=== PATIENT | female | born 2000 | race Caucasian/White ===

== ENCOUNTER 2019-04-21 16:43 | Emergency (ER) | payer OTHER, SELFPAY ==
[2019-04-21 16:52] VITALS: BP 125/62; PULSE 86; RESP 18; TEMP 36.6; O2SAT 100
--- NOTE | 2019-04-21 17:08 | ED.GENADULT ---
HPI - General Adult General Chief complaint: Upper Respiratory Infection Stated complaint: Sore Throat Time Seen by Provider: 04/21/19 17:08 Source: patient and RN notes reviewed Mode of arrival: ambulatory Limitations: no limitations History of Present Illness HPI narrative: This is a 18 years old female presented office for evaluation of sore throat for 3-day. Associated with right ear pain and runny nose. She also reported a little cough.She admits to smoking about 2 cigarettes a day however she has not been smoking since she has been having sore throat.She is 36-week Related Data Home Medications Medication Instructions Recorded Confirmed PNV cmb#95-ferrous fumarate-FA 1 tablet PO DAILY 04/21/19 04/21/19 [] Allergies Allergy/AdvReac Type Severity Reaction Status Date / Time No Known Allergies Allergy Verified 09/25/18 18:18 Review of Systems Review of Systems: Narrative: CONSTITUTIONAL: Denies fever ENT: Reports sore throat, right ear pain and a little stuffy nose. CARDIOVASCULAR: Denies chest pain RESPIRATORY: Denies dyspnea, wheezing. Reports cough GASTROINTESTINAL: Denies abdominal pain, nausea, vomiting, diarrhea. GENITOURINARY: Denies urinary symptoms or discharge SKIN: Denies rash MUSCULOSKELETAL: Denies acute back pain, joint pain, or myalgia. NEUROLOGIC: Denies numbness, or focal weakness. [facility] Social History Social History (Updated 04/21/19 @ 17:15 by LIO Serrano) Smoking packs per day: 2 Smoking cigarettes per day: 40.0 Smoking status: Current every day smoker Comments At time of signature, I agree with nursing past medical, surgical, social and family history. There is no relevant family history pertinent to the presenting complaint. Exam Narrative: Exam Narrative: GENERAL: This is a well-nourished, well-developed patient, in no apparent distress. EYES: Sclera clear/white. Vision is grossly intact. EARS: External ears normal, auditory canals clear and without drainage, right TM noted suppurative and bulging. Left TM noted fluid level. Hearing grossly intact. NOSE: External nose normal with no obvious nasal discharge, nares without redness, no rhinorrhea. THROAT: Mucous membranes moist, posterior pharynx slight erythema with drainage NECK: Neck supple, tender with lymphadenopathy CARDIOVASCULAR: Regular rate and rhythm without murmurs, gallops, or rubs. RESPIRATORY: Clear to auscultation. Breath sounds equal bilaterally. No wheezes, rales, or rhonchi. GASTROINTESTINAL: Abdomen soft, non-tender, nondistended. Bowel sounds are active. No hepato-splenomegaly, or palpable masses. No guarding. SKIN: warm, intact with no suspicious lesions or rash, good texture and turgor. NEURO: awake, alert, and oriented to person, place and time. There were no obvious focal neurologic abnormalities. Steady gait [place] Coma Scale Eye Opening: Spontaneous 4 [place] Coma Scale Motor: Obeys Commands 6 Ines Coma Scale Verbal: Oriented 5 Course Vital Signs Vital signs: Vital Signs Temperature 97.8 F 04/21/19 16:52 Pulse Rate 86 04/21/19 16:52 Respiratory Rate 18 04/21/19 16:52 Blood Pressure 125/62 04/21/19 16:52 Pulse Oximetry 100 04/21/19 16:52 Temperature 97.8 F 04/21/19 16:52 Pulse Rate 86 04/21/19 16:52 Respiratory Rate 18 04/21/19 16:52 Blood Pressure 125/62 04/21/19 16:52 Pulse Oximetry 100 04/21/19 16:52 Medical Decision Making MDM Narrative Medical decision making narrative: Discharge instructions reviewed with patient, as well as provided in writing per nursing staff. The instructions also include specific and strict return/GO TO THE ER as well as f/u information. All questions have been answered, and the patient deny any further questions with discharge and discharge plan. Differential Diagnosis Differential Diagnosis: pneumonia, Allergic Rhinitis, Upper respiratory cough syndrome, Pharyngitis, Sinusitis, Bronch
== END 2019-04-21 17:19 | disposition home or self-care (01) ==
PROVIDERS: Emergency Provider Nurse Practitioner
DX: O99.513 Diseases of the respiratory system complicating pregnancy, third trimester (principal); J02.9 Acute pharyngitis, unspecified; O99.333 Smoking (tobacco) complicating pregnancy, third trimester; Z3A.36 36 weeks gestation of pregnancy
CPT/HCPCS: 87081; 87880; 99213; G0463

== ENCOUNTER 2020-12-30 18:14 | Emergency (ER) | payer OTHER, SELFPAY ==
--- NOTE | ~2020-12-30 | CT_ITS ---
EXAMINATION: CT abdomen pelvis w con DATE: 12/30/2020 22:00 INDICATION: Low abdominal pain. TECHNIQUE: Computed tomography (CT) of the abdomen and pelvis was performed with 100 mL Omnipaque 350 intravenous contrast. Automated exposure control and iterative reconstruction technique were employe d. The dose-length product was 284.55 mGy-cm. COMPARISON: CT abdomen and pelvis 01/08/17 FINDINGS: The visualized portions of the lung bases are clear without pneumonia or pleural effusion. The heart size is normal. No pericardial effusion. The liver, gallbladder, spleen, pancreas, adrenal glands, and left kidney are normal. There is a 5 mm cyst in right kidney. There are no dilated loops of bowel. There are no dilated loops of bowel. The appendix is normal. There are no pathologically en larged lymph nodes. There is no free intraperitoneal fluid. There is mild lumbar spondylosis. IMPRESSION: 1. No etiology for the patient's symptoms. Reviewed, dictated and finalized at location [facility].
[2020-12-30 19:02] VITALS: BP 112/56; PULSE 86; RESP 18; TEMP 36.7; O2SAT 100
[2020-12-30 19:02] LABS: Basophils Percent Auto 0.4 % (0.2-1.2); Eosinophils Absolute Auto 0.1 K/mm3 (0-0.3); Eosinophils Percent Auto 0.7 % (0-4.4); Hematocrit 39.5 % (37.0-47.0); Hemoglobin 13.3 g/dL (12.0-15.0); Immature Granulocyte Absolute 0.02 K/mm3 (0.00-0.031); Immature Granulocyte Percent A 0.2 % (0-0.5); Lymphocytes Absolute Auto 2.12 K/mm3 (0.9-3.2); Lymphocytes Percent Auto 23.2 % (18.3-44.2); Mean Corpuscular HGB Conc 33.7 g/dl (32-36); Mean Corpuscular Hemoglobin 28.8 pg (26-34); Mean Corpuscular Volume 85.5 fl (80-100); Mean Platelet Volume 9.3 fl (7.4-10.4); Monocytes Absolute Auto 0.7 K/mm3 (0.1-0.6); Monocytes Percent Auto 7.1 % (2.6-8.5); Neutrophils Absolute Auto 6.3 K/mm3 (1.3-6.7); Neutrophils Percent Auto 68.4 % (45.5-73.1); Platelet Count Result 286 k/mm3 (150-375); Red Blood Count 4.62 M/mm3 (4.2-5.4); Red Cell Distribution Width 12.2 % (11.5-14.5); White Blood Count 9.2 K/mm3 (4.5-10.0)
[2020-12-30 19:11] LABS: Alanine Aminotransferase 26 U/L (4-35); Albumin Level 4.8 g/dL (3.5-5.1); Alkaline Phosphatase 83 U/L (38-126); Anion Gap 7 mmol/L (8-16); Aspartate Amino Transferase 25 U/L (14-36); Bilirubin,Total 0.3 mg/dL (0.2-1.3); Blood Urea Nitrogen 6 mg/dL (7-17); Calcium 9.6 mg/dL (8.4-10.2); Carbon Dioxide 27 mmol/L (22-30); Chloride 105 mmol/L (98-107); Estimated CRCL calculation 97 ml/min; Estimated Glomerular Filt Rate > 60; Glucose 97 mg/dL (65-110); Lipase 56 U/L (23-300); Potassium 4.1 mmol/L (3.4-5.0); Sodium 139 mmol/L (137-145)
[2020-12-30 19:12] LABS: Add Urine Microscopic? YES; Appearance Urine Clear (Clear); Bacteria Urine Trace /hpf; Bilirubin Urine Negative (Negative); Blood Urine 1+ (Negative); Color Urine Yellow (Yellow); Glucose Urine UA Negative (Negative); Ketones Urine Negative (Negative); Leukocyte Esterase Ur 1+ LEU/UL (Negative); Nitrate Urine Negative (Negative); Protein Urine Negative (Negative); RBC Urine 0-2 /hpf (0-2); Specific Grav Ur 1.011 (1.001-1.035); Squamous Epithelial Cell Urine Many /hpf (Few); Urobilinogen Urine Negative mg/dL (<2.0)
--- NOTE | 2020-12-30 21:08 | ED.ABDPAIN ---
HPI - Abdominal Pain General Chief Complaint: Abdominal Pain Stated Complaint: abd pain x 2 days Time Seen by Provider: 12/30/20 20:29 Source: RN notes reviewed History of Present Illness HPI narrative: Patient presents emergency department from home for abdominal pain. Patient states pain began yesterday pain is located in the bilateral lower abdomen described as cramping in nature associate with nausea and diarrhea states she has not had any vomiting patient states she did take ibuprofen yesterday but not taking medication today she denies any fevers or chills chest pain shortness of breath or any other symptoms of concern patient also notes she is had a small amount of brownish vaginal discharge Related Data Home Medications Medication Instructions Recorded Confirmed PNV cmb#95-ferrous fumarate-FA 1 tablet PO DAILY 04/21/19 04/21/19 [] Allergies Allergy/AdvReac Type Severity Reaction Status Date / Time No Known Allergies Allergy Verified 12/30/20 21:26 Review of Systems Review of Systems: Gen.: Denies fevers or chills ENT: Denies congestion Respiratory: Denies shortness of breath or cough CV: Denies chest pain or palpitations GI: See HPI denies burning, urgency, frequency or hematuria Musculoskeletal: Denies back pain or muscle pain Neuro: Denies numbness, tingling, weakness or focal weakness Skin: Denies rash Except as documented, all other systems reviewed and negative [facility] Social History Social History Smoking packs per day: 2 Smoking cigarettes per day: 40.0 Smoking status: Current every day smoker Exam Narrative: APPEARANCE: No acute distress, nontoxic, resting in bed HEENT: Normocephalic, atraumatic, OMM RESPIRATORY: No respiratory distress, clear to auscultation bilaterally with no rhonchi wheezing or rales CARDIOVASCULAR: RRR s murmur ABDOMINAL: Soft nondistended tender palpation right lower quadrant left lower quadrant no tenderness right upper quadrant left upper quadrant no rebound or guarding exam: Normal external exam, moderate amount of dark maroon blood clots in vaginal canal cervix is closed, no adnexal tenderness no cervical motion tenderness MUSCULOSKELETAl: Moves all extremities. No clubbing, cyanosis or edema. NEURO: Awake and alert. Following commands, speech normal, no focal deficits SKIN:: Warm, dry. Normal Color PSYCHIATRIC: Normal affect/mood Course Course Emergency Course: Just before getting ready to perform pelvic exam the patient states she fell like she has started her menstrual cycle patient gone to the bathroom and came back in states she did indeed start her menstrual cycle states she has not had a menstrual cycle in 8 months suspect this could be a component of her abdominal pain Patient states that they are feeling much better at this time. States abdominal pain has improved.. Repeat abdominal exam shows the patient's abdomen to be soft with no surgical abdomen present. Discussed with patient results of workup and diagnosis. Discussed need for follow-up with primary care physician, reasons to return to the emergency department in proper use of medication. Patient understands and agrees to current treatment plan Vital Signs Vital signs: Vital Signs Temperature 98.0 F 12/30/20 19:02 Pulse Rate 86 12/30/20 19:02 Respiratory Rate 18 12/30/20 19:02 Blood Pressure 112/56 L 12/30/20 19:02 Pulse Oximetry 100 12/30/20 19:02 Temperature 98.0 F 12/30/20 19:02 Pulse Rate 77 12/30/20 21:17 Respiratory Rate 16 12/30/20 21:17 Blood Pressure 118/65 12/30/20 21:17 Pulse Oximetry 99 12/30/20 21:17 MDM - Abdominal Pain Lab Data Result diagrams: 12/30/20 18:56 12/30/20 18:56 Labs: Lab Results 12/30/20 12/30/20 12/30/20 Range/Units 18:56 18:56 19:01 WBC 9.2 (4.5-10.0) K/mm3 RBC 4.62 (4.2-5.4) M/mm3 Hgb 13.3 (12.0-15.0) g/dL
[2020-12-30 21:17] VITALS: BP 118/65; PULSE 77; RESP 16; O2SAT 99
[2020-12-30] MEDS: SODIUM CHLORIDE 0.9% IV 1,000 ML 999 ML IV CONT (21:27)
[2020-12-30] MEDS: KETOROLAC 30 MG/ML VIAL (*BKC) IV PUSH (21:27)
[2020-12-31] MEDS: NITROFURANTOIN MONOHYD MACROCR 100 MG CAP PO (00:16)
[2020-12-31 00:27] VITALS: BP 128/86; PULSE 79; RESP 14; O2SAT 98
== END 2020-12-31 00:29 | disposition home or self-care (01) ==
PROVIDERS: Emergency Provider Emergency Medicine
DX: R10.30 Lower abdominal pain, unspecified (principal); N93.8 Other specified abnormal uterine and vaginal bleeding; N39.0 Urinary tract infection, site not specified; F17.210 Nicotine dependence, cigarettes, uncomplicated
CPT/HCPCS: 36415; 74177; 80053; 81001; 81025; 83690; 85025; 96361; 96374; 99284; A9270; J1885; J7030; Q9967

== ENCOUNTER 2021-12-08 09:30 | Emergency (ER) | payer OTHER, SELFPAY ==
--- NOTE | ~2021-12-08 | CT_ITS ---
EXAMINATION: CT abdomen pelvis w con DATE: 12/08/2021 12:55 INDICATION: Lower abdominal pain, nausea and vomiting. Near syncopal episode. Shakiness. Urinary trac t infection. TECHNIQUE: Computed tomography (CT) of the abdomen and pelvis was performed with 100 CC Omnipaque 350 intravenous contrast. Automated exposure control and iterative reconstruction technique were employe d. Exam dose: 355.45 mGy-cm total exam DLP. COMPARISON: 12/30/2020 CT abdomen pelvis FINDINGS: The lung bases are clear. Normal heart size. No pericardial or pleural effusion. The liver, gallbladder, bile ducts, spleen, pancreas and pancreatic duct as well as adrenal glands ap pear normal. No suspicious renal mass lesion is noted. There may be a couple of pinpoint nonobstructing renal calculi on either side; urinary tract calculi would be better accurately demonstrated on noncontrast examination. No ureteral calculus or hydrouret eronephrosis. Normal caliber of the abdominal aorta. No intraperitoneal or retroperitoneal or pelvic mass lesion or adenopathy or ascites. The urinary bladder, uterus and adnexal areas are unremarkable. Normal appendix. No bowel obstruction, bowel wall thickening, pneumatosis or intraperitoneal free air is detected. Small fat-containing umbilical hernia. Included skeletal structures are unremarkable. IMPRESSION: Cannot exclude one or more small renal calculi on either side; alternatively, this may b e early contrast material excretion by the kidneys. Noncontrast CT examination would be more accurate for detection of urinary tract calculi Normal appendix Reviewed, dictated and finalized at [facility]. Reviewed, dictated and finalized at location [facility]. IMPRESSION: Cannot exclude one or more small renal calculi on either side; alt ernatively, this may be early contrast material excretion by the kidneys. Nonco ntrast CT examination would be more accurate for detection of urinary tract amie culi Normal appendix
[2021-12-08 09:36] VITALS: BP 111/73; PULSE 83; RESP 18; TEMP 36.7; O2SAT 99
[2021-12-08 11:08] VITALS: BP 111/68; PULSE 69
[2021-12-08 11:09] VITALS: BP 105/72; PULSE 68
[2021-12-08 11:10] VITALS: BP 114/75; PULSE 84
--- NOTE | 2021-12-08 11:22 | ED.ABDPAIN ---
HPI - Abdominal Pain General Chief Complaint: Abdominal Pain Stated Complaint: abd pain Time Seen by Provider: 12/08/21 10:40 Source: patient Mode of arrival: ambulatory Limitations: no limitations History of Present Illness HPI narrative: Patient is a 21 y/o female who presents to the ED with c/o abdominal pain and nausea. Patient reports having a nauseous feeling and pain in her lower abdomen for the past couple days. She has not tried anything for her pain at home. She just describes it as a queasy feeling. She denies any vomiting. This morning, she reports she became hot while straightening her hair and felt slightly lightheaded. She then decided to come to the ED. Lightheadedness currently resolved. Patient denies any fever, diarrhea, constipation, urinary symptoms, headache, dizziness, vision changes, CP, SOB, cough, cold symptoms, myalgias. Related Data Home Medications Medication Instructions Recorded Confirmed vit no.95-ferrous 1 tablet PO DAILY 04/21/19 04/21/19 fumarate 28 mg-folic acid 800 mcg tablet () Allergies Allergy/AdvReac Type Severity Reaction Status Date / Time No Known Allergies Allergy Verified 12/08/21 10:34 Review of Systems Review of Systems: CONSTITUTIONAL: Reports sweats. Denies fever, chills. EYES: Denies visual changes. ENT: Denies rhinorrhea, congestion, sore throat. CARDIOVASCULAR: Denies chest pain. RESPIRATORY: Denies cough or dyspnea. GASTROINTESTINAL: Reports lower ABD pain, nausea. Denies constipation, vomiting, or diarrhea. GENITOURINARY: Denies dysuria or hematuria. NEUROLOGIC: Reports lightheadedness. Denies headache, numbness, or weakness. All systems reviewed & are unremarkable except as noted in HPI and below PMFSH Past Medical History Medical History No pertinent past medical history Surgical History Surgical History No pertinent past surgical history Social History Social History Smoking packs per day: 2 Smoking cigarettes per day: 40.0 Smoking status: Current every day smoker Exam Narrative: GENERAL: Well appearing, well-nourished, non-toxic, in no acute distress. HEAD: Normocephalic, atraumatic. EYES: PERRL/EOMI, conjunctivae clear bilaterally. THROAT: Pharynx clear, no exudate. MMs moist. NECK: Supple. No adenopathy, no masses. RESPIRATORY: Airway patent, respirations nonlabored. Clear to auscultation bilaterally, no rales, rhonchi, wheezing. CARDIOVASCULAR: Regular rate and rhythm without murmurs, rubs, or gallops. Peripheral pulses 2+ and equal bilaterally. ABDOMINAL: Soft, mild tenderness to palpation in lower ABD, no rebound or guarding, nondistended, no hepatosplenomegaly. Normoactive BS. MUSCULOSKELETAL: Moves all extremities. Strength/ROM intact without gross deformities. SKIN: Warm, dry, normal color. No rashes. NEURO: A&O X3. Speech clear. Cranial nerves II-XII grossly intact. Steady gait. No ataxic movements. PSYCHIATRIC: Appropriate mood and affect. Normal interaction. Course Vital Signs Vital signs: Vital Signs Temperature 98.0 F 12/08/21 09:36 Pulse Rate 83 12/08/21 09:36 Respiratory Rate 18 12/08/21 09:36 Blood Pressure 111/73 12/08/21 09:36 Pulse Oximetry 99 12/08/21 09:36 Oxygen Delivery Room Air 12/08/21 09:36 Temperature 98.0 F 12/08/21 09:36 Pulse Rate 78 12/08/21 14:29 Respiratory Rate 18 12/08/21 14:29 Blood Pressure 112/68 12/08/21 14:29 Pulse Oximetry 99 12/08/21 14:29 Oxygen Delivery Room Air 12/08/21 09:36 MDM - Abdominal Pain MDM Narrative Medical decision making narrative: Patient presented to ED with lower abdominal pain and nausea. Vital signs stable upon arrival. No significant orthostatic hypotension. Laboratory evaluation completely unremarkable. CT scan of
[2021-12-08 11:26] LABS: Appearance Urine Clear (Clear); Bacteria Urine Trace /hpf; Bilirubin Urine Negative (Negative); Blood Urine Negative (Negative); Color Urine Yellow (Yellow); Glucose Urine UA Negative (Negative); Ketones Urine Negative (Negative); Leukocyte Esterase Ur 2+ LEU/UL (Negative); Nitrate Urine Negative (Negative); Protein Urine Negative (Negative); RBC Urine 0-2 /hpf (0-2); Squamous Epithelial Cell Urine Many /hpf (Few); Urobilinogen Urine 0.2 mg/dL (<2.0); pH Urine 6.5 (5.0-9.0)
[2021-12-08 11:42] LABS: Add Urine Microscopic? YES
[2021-12-08] MEDS: SODIUM CHLORIDE 0.9% IV 1,000 ML 999 ML IV CONT (11:55)
[2021-12-08] MEDS: ONDANSETRON INJ 4 MG/2 ML VIAL IV PUSH (11:56)
[2021-12-08 11:57] VITALS: BP 105/65; PULSE 66; RESP 20; O2SAT 99
[2021-12-08 12:09] LABS: Pregnancy On Board Control Positive; Urine Pregnancy Test Negative
[2021-12-08 12:29] LABS: Basophils Percent Auto 0.5 % (0.2-1.2); Eosinophils Percent Auto 0.5 % (0-4.4); Hematocrit 37.2 % (37.0-47.0); Hemoglobin 12.3 g/dL (12.0-15.0); Immature Granulocyte Absolute 0.02 K/mm3 (0.00-0.031); Immature Granulocyte Percent A 0.3 % (0-0.5); Lymphocytes Absolute Auto 1.95 K/mm3 (0.9-3.2); Lymphocytes Percent Auto 26.3 % (18.3-44.2); Mean Corpuscular HGB Conc 33.1 g/dl (32-36); Mean Corpuscular Hemoglobin 28.5 pg (26-34); Mean Corpuscular Volume 86.1 fl (80-100); Mean Platelet Volume 8.9 fl (7.4-10.4); Monocytes Absolute Auto 0.4 K/mm3 (0.1-0.6); Monocytes Percent Auto 5.7 % (2.6-8.5); Neutrophils Percent Auto 66.7 % (45.5-73.1); Platelet Count Result 256 k/mm3 (150-375); Red Blood Count 4.32 M/mm3 (4.2-5.4); Red Cell Distribution Width 12.4 % (11.5-14.5); White Blood Count 7.4 K/mm3 (4.5-10.0)
[2021-12-08 12:39] LABS: Alanine Aminotransferase 16 U/L (6-35); Albumin Level 4.2 g/dL (3.5-5.1); Alkaline Phosphatase 61 U/L (38-126); Anion Gap 10 mmol/L (8-16); Aspartate Amino Transferase 21 U/L (14-36); Bilirubin,Total 0.3 mg/dL (0.2-1.3); Blood Urea Nitrogen 8 mg/dL (7-17); Calcium 8.5 mg/dL (8.4-10.2); Carbon Dioxide 25 mmol/L (22-30); Chloride 103 mmol/L (98-107); Estimated CRCL calculation 114 ml/min; Estimated Glomerular Filt Rate > 60; Glucose 93 mg/dL (65-110); Lipase 52 U/L (23-300); Potassium 3.8 mmol/L (3.4-5.0); Sodium 138 mmol/L (137-145)
[2021-12-08 14:29] VITALS: BP 112/68; PULSE 78; RESP 18; O2SAT 99
== END 2021-12-08 14:30 | disposition home or self-care (01) ==
PROVIDERS: Physician Assistant; Emergency Provider Emergency Medicine
DX: N30.00 Acute cystitis without hematuria (principal); R11.0 Nausea; F17.210 Nicotine dependence, cigarettes, uncomplicated
CPT/HCPCS: 36415; 74177; 80053; 81001; 81025; 83690; 85025; 87086; 87088; 96361; 96365; 96375; 99284; J0131; J2405; J7030; Q9967

== ENCOUNTER 2022-01-20 19:30 | Emergency (ER) | payer OTHER, SELFPAY ==
[2022-01-20 19:51] VITALS: BP 123/62; PULSE 93; RESP 20; TEMP 36.6; O2SAT 99
--- NOTE | 2022-01-20 23:23 | ED.GENADULT ---
HPI - General Adult General Chief complaint: Skin/Abscess/Foreign Body Stated complaint: knot on chin Time Seen by Provider: 01/20/22 23:07 History of Present Illness HPI narrative: 21-year-old female presented the emergency room for evaluation of a painful mass under her chin that has been present since 2:00 this afternoon. Patient states the past couple of hours that mass has become increasingly bigger and is causing her to have difficulty in swallowing. Patient denies any decreasing salivation. Related Data Home Medications Medication Instructions Recorded Confirmed vit no.95-ferrous 1 tablet PO DAILY 04/21/19 04/21/19 fumarate 28 mg-folic acid 800 mcg tablet () Allergies Allergy/AdvReac Type Severity Reaction Status Date / Time No Known Allergies Allergy Verified 12/08/21 10:34 Review of Systems Review of Systems: CONSTITUTIONAL: Denies fever, chills, or sweats. EYES: Denies visual changes, redness, or discharge. ENT: Denies rhinorrhea, congestion, sore throat, or otalgia. CARDIOVASCULAR: Denies chest pain, palpitations, or edema. RESPIRATORY: Denies cough or dyspnea. GASTROINTESTINAL: Denies abdominal pain, nausea, vomiting, or diarrhea. GENITOURINARY: Denies dysuria or hematuria. SKIN: Denies rash or itching. MUSCULOSKELETAL: Denies back pain, joint pain, or myalgia. NEUROLOGIC: Denies headache, numbness, dizziness, or weakness. PSYCHIATRIC: Denies anxiety or depression. PMFSH Past Medical History Medical History No pertinent past medical history Surgical History Surgical History No pertinent past surgical history Social History Social History Smoking packs per day: 2 Smoking cigarettes per day: 40.0 Smoking status: Current every day smoker Exam Narrative: GENERAL: Well-appearing, well-nourished, no physical limitations, and in no acute distress. HEAD: Normocephalic, atraumatic. EYES: Conjunctivae normal, PERRLA and EOMI. ENT: Mucous membranes moist. NECK: Supple. Single, painful indurated mass to the submandibular area. No erythema noted CHEST: Clear to auscultation. No respiratory distress. No wheezes rales or rhonchi. HEART: Regular rate and rhythm. No murmur heard. Normal peripheral pulses. ABDOMEN: Soft, nontender, nondistended, normal active bowel sounds. BACK: No CVA tenderness; No cervical/thoracic/lumbar tenderness, step-offs, bony abnormality; FROM EXTREMITIES: Normal range of motion. No edema. No clubbing or cyanosis SKIN: Warm, dry, no rash. No noted wounds NEURO: No focal deficits. Alert and oriented x3. MAEW. CN's II-XI intact bilaterally, normal gait PSYCH: Cooperative. Normal mood and affect. Course Vital Signs Vital signs: Vital Signs Temperature 36.6 C 01/20/22 19:51 Pulse Rate 93 01/20/22 19:51 Respiratory Rate 20 01/20/22 19:51 Blood Pressure 123/62 01/20/22 19:51 Pulse Oximetry 99 01/20/22 19:51 Oxygen Delivery Room Air 01/20/22 19:51 Temperature 36.6 C 01/20/22 19:51 Pulse Rate 93 01/20/22 19:51 Respiratory Rate 20 01/20/22 19:51 Blood Pressure 123/62 01/20/22 19:51 Pulse Oximetry 99 01/20/22 19:51 Oxygen Delivery Room Air 01/20/22 19:51 Medical Decision Making Vital Signs Vital Signs: Vital Signs Temperature 36.6 C 01/20/22 19:51 Pulse Rate 93 01/20/22 19:51 Respiratory Rate 20 01/20/22 19:51 Blood Pressure 123/62 01/20/22 19:51 Pulse Oximetry 99 01/20/22 19:51 Oxygen Delivery Room Air 01/20/22 19:51 Temperature 36.6 C 01/20/22 19:51 Pulse Rate 93 01/20/22 19:51 Respiratory Rate 20 01/20/22 19:51 Blood Pressure 123/62 01/20/22 19:51 Pulse Oximetry 99 01/20/22 19:51 Oxygen Delivery Room Air 01/20/22 19:51 Discharge Plan Discharge Clinical Impression: [place]
[2022-01-20 23:36] VITALS: BP 106/70; PULSE 84; O2SAT 99
== END 2022-01-20 23:38 | disposition home or self-care (01) ==
PROVIDERS: Emergency Provider Nurse Practitioner Family
DX: K11.20 Sialoadenitis, unspecified (principal)
CPT/HCPCS: 99283

== ENCOUNTER 2022-03-24 14:28 | Emergency (ER) | payer OTHER, SELFPAY ==
[2022-03-24 14:36] VITALS: BP 109/69; PULSE 75; RESP 20; TEMP 36.7; O2SAT 100
[2022-03-24 15:07] LABS: Add Urine Microscopic? YES; Appearance Urine Clear (Clear); Bilirubin Urine Negative (Negative); Blood Urine Negative (Negative); Color Urine Yellow (Yellow); Glucose Urine UA Negative (Negative); Ketones Urine Negative (Negative); Leukocyte Esterase Ur 1+ LEU/UL (Negative); Nitrate Urine Negative (Negative); Protein Urine Negative (Negative); Specific Grav Ur 1.015 (1.001-1.035); Urobilinogen Urine 0.2 mg/dL (<2.0); pH Urine 7.5 (5.0-9.0)
== END 2022-03-24 17:51 | disposition left against medical advice (07) ==
LOC: ANHED 17:55
PROVIDERS: Emergency Provider Emergency Medicine
DX: R11.0 Nausea (principal)
CPT/HCPCS: 81001; 81025; 99199

== ENCOUNTER 2023-02-10 22:17 | Emergency (ER) | payer OTHER, SELFPAY ==
--- NOTE | ~2023-02-10 | US_ITS ---
EXAMINATION: US pelvic complete w TV DATE: 02/10/2023 23:43 INDICATION: pelvic pain TECHNIQUE: Multiple transabdominal and endovaginal sonographic images of the pelvis were obtained. COMPARISON: CT abdomen pelvis 12/08/2021. FINDINGS: Uterus: 8.3 x 3.1 x 5.5 cm. Septate uterus. Calcifications in the left uterine cornua. Dilated uterin e vessels. Endometrial complex measures 5 mm. Right Ovary: 2.7 x 2.0 x 2.2 cm. Vascular flow is present. Left Ovary: 2.8 x 2.5 x 2.5 cm. Vascular flow is present. There is no free fluid in the pelvis. IMPRESSION: Septate uterus with presumably dystrophic calcifications in the left uterine cornua, possibly related to adhesions. Consider gynecology referral and hysterosalpingography or sonohysterography. Dilated uterine and periuterine vessels as can be seen with pelvic congestion syndrome. Correlate cli nically for persistent dull pelvic pain lasting > 6 months, dysmenorrhea, dyspareunia, postcoital ach e, and urinary symptoms. Reviewed, dictated and finalized at location [facility]. [employer] IMPRESSION: Septate uterus with presumably dystrophic calcifications in the left uterine co rnua, possibly related to adhesions. Consider gynecology referral and hysterosa lpingography or sonohysterography. Dilated uterine and periuterine vessels as can be seen with pelvic congestion s yndrome. Correlate clinically for persistent dull pelvic pain lasting > 6 month s, dysmenorrhea, dyspareunia, postcoital ache, and urinary symptoms.
[2023-02-10 22:18] VITALS: BP 118/70; PULSE 72; RESP 15; TEMP 36.2; O2SAT 100
--- NOTE | 2023-02-10 23:09 | ED.GENADULT ---
HPI - General Adult General Chief complaint: Unspecified Stated complaint: pelvic pain Time Seen by Provider: 02/10/23 22:41 Source: patient Mode of arrival: ambulatory Limitations: no limitations History of Present Illness HPI narrative: This is a 22 year old female that presents to the ER for pelvic pain. Ongoing over the last 5 hours. She tried taking Ibuprofen with little relief. Denies any other associated symptoms. Denies fever, vomiting, dysuria, hematuria, or diarrhea. Related Data Home Medications Medication Instructions Recorded Confirmed ibuprofen 200 mg tablet 800 mg PO PRN PRN Pain 05/20/22 05/20/22 Allergies Allergy/AdvReac Type Severity Reaction Status Date / Time No Known Allergies Allergy Verified 05/20/22 14:06 Review of Systems Review of Systems: CONSTITUTIONAL: Denies fever GASTROINTESTINAL: Reports abdominal pain. Denies nausea, vomiting, or diarrhea. GENITOURINARY: Denies dysuria or hematuria. All systems reviewed & are unremarkable except as noted in HPI and below PMFSH Past Medical History Medical History (Updated 02/11/23 @ 00:53 by Leti Palafox PA-C) Asthma last attack as a child (normal spontaneous vaginal delivery) x2 Surgical History Surgical History No pertinent past surgical history Family History Family History (Updated 06/22/22 @ 09:07 by Charity Beard MD) Mother Breast cancer Ovarian cancer Social History Social History Smoking packs per day: 0.5 Smoking cigarettes per day: 10.0 Years smoked: 10 Smoking pack-years: 5.00 Smoking status: Current every day smoker Tobacco type: cigarettes Living arrangements: with family Spiritual care concerns: No Exam Narrative: GENERAL: Well-appearing, well-nourished, and in no acute distress. HEAD: Normocephalic, atraumatic. EYES: EOMI. CHEST: Clear to auscultation. No respiratory distress. No wheezes rales or rhonchi HEART: Regular rate and rhythm. No murmur heard. Normal peripheral pulses. ABDOMEN: Soft, nontender, nondistended, normal active bowel sounds. EXTREMITIES: Normal range of motion. No edema. SKIN: Warm, dry, no rash. NEURO: No focal deficits. Alert and oriented x3. PSYCH: Normal mood and affect Course Course Emergency Course: Patient updated on workup and agrees with plan of care Vital Signs Vital signs: Vital Signs Temperature 97.2 F L 02/10/23 22:18 Pulse Rate 72 02/10/23 22:18 Respiratory Rate 15 02/10/23 22:18 Blood Pressure 118/70 02/10/23 22:18 Pulse Oximetry 100 02/10/23 22:18 Oxygen Delivery Room Air 02/10/23 22:18 Temperature 97.2 F L 02/10/23 22:18 Pulse Rate 70 02/11/23 00:37 Respiratory Rate 18 02/11/23 00:37 Blood Pressure 106/51 L 02/11/23 00:37 Pulse Oximetry 98 02/11/23 00:37 Oxygen Delivery Room Air 02/10/23 22:18 Medical Decision Making MDM Narrative Medical decision making narrative: Patient presents to the emergency department for pelvic pain several hours. She is afebrile and nontoxic appearing. Her vitals are stable. CBC with mild leukocytosis to 11.3. Metabolic panel without concerning findings. Urine without evidence of infection. This will be sent for culture. Patient will be started on oral antibiotic. test is negative. Pelvic ultrasound shows septate uterus. Findings consistent with pelvic congestion syndrome. Patient updated on workup and agrees with plan of care. She is to follow up with Gynecology. She was given warnings to return to the ER Vital Signs Vital Signs: Vital Signs Temperature 97.2 F L 02/10/23 22:18 Pulse Rate 72 02/10/23 22:18 Respiratory Rate 15 02/10/23 22:18 Blood Pressure 118/70 02/10/23 22:18 Pulse Oximetry 100 02/10/23 22:18 Oxygen Delivery Room Air 02/10/23 22:18 Temperature 97.2 F L 02/10/23
[2023-02-11] LABS: Basophils Percent Auto 0.4 % (0.2-1.2); Eosinophils Absolute Auto 0.1 K/mm3 (0-0.3); Hematocrit 41.1 % (37.0-47.0); Hemoglobin 13.7 g/dL (12.0-15.0); Immature Granulocyte Absolute 0.03 K/mm3 (0.00-0.031); Immature Granulocyte Percent A 0.3 % (0-0.5); Lymphocytes Absolute Auto 3.89 K/mm3 (0.9-3.2); Lymphocytes Percent Auto 34.5 % (18.3-44.2); Mean Corpuscular HGB Conc 33.3 g/dl (32-36); Mean Corpuscular Volume 86.9 fl (80-100); Mean Platelet Volume 9.4 fl (7.4-10.4); Monocytes Absolute Auto 0.7 K/mm3 (0.1-0.6); Neutrophils Absolute Auto 6.5 K/mm3 (1.3-6.7); Neutrophils Percent Auto 57.8 % (45.5-73.1); Platelet Count Result 291 k/mm3 (150-375); Red Blood Count 4.73 M/mm3 (4.2-5.4); Red Cell Distribution Width 12.3 % (11.5-14.5); White Blood Count 11.3 K/mm3 (4.5-10.0)
[2023-02-11 00:11] LABS: Alanine Aminotransferase 22 U/L (6-35); Albumin Level 4.3 g/dL (3.5-5.1); Alkaline Phosphatase 70 U/L (38-126); Anion Gap 9 mmol/L (8-16); Aspartate Amino Transferase 33 U/L (14-36); Bilirubin,Total 0.4 mg/dL (0.2-1.3); Blood Urea Nitrogen 9 mg/dL (7-17); Calcium 9.4 mg/dL (8.4-10.2); Carbon Dioxide 26 mmol/L (22-30); Chloride 103 mmol/L (98-107); Estimated CRCL calculation 112 ml/min; Estimated Glomerular Filt Rate > 60; Glucose 93 mg/dL (65-110); Lipase 98 U/L (23-300); Potassium 3.6 mmol/L (3.4-5.0); Sodium 138 mmol/L (137-145)
[2023-02-11 00:31] LABS: Appearance Urine Turbid (Clear); Bilirubin Urine Negative (Negative); Blood Urine Negative (Negative); Color Urine Yellow (Yellow); Glucose Urine UA Negative (Negative); Ketones Urine Negative (Negative); Leukocyte Esterase Ur 1+ LEU/UL (Negative); Nitrate Urine Negative (Negative); Protein Urine Negative (Negative); Specific Grav Ur 1.017 (1.001-1.035)
[2023-02-11] MEDS: ACETAMINOPHEN 500 MG TABLET 1000 MG PO (00:36)
[2023-02-11 00:37] VITALS: BP 106/51; PULSE 70; RESP 18; O2SAT 98
[2023-02-11 00:42] LABS: Bacteria Urine Rare /hpf; Non Pathogenic Casts 0-2; RBC Urine 0-2 /hpf (0-2)
[2023-02-11 00:43] LABS: Squamous Epithelial Cell Urine Moderate /hpf (Few)
[2023-02-11 00:44] LABS: Add Urine Microscopic? YES
== END 2023-02-11 01:05 | disposition home or self-care (01) ==
PROVIDERS: Emergency Provider Physician Assistant
DX: N94.89 Other specified conditions associated with female genital organs and menstrual cycle (principal); N39.0 Urinary tract infection, site not specified; J45.909 Unspecified asthma, uncomplicated; F17.210 Nicotine dependence, cigarettes, uncomplicated; Q51.28 Other and unspecified doubling of uterus
CPT/HCPCS: 36415; 76830; 76856; 80053; 81001; 81025; 83690; 85025; 87086; 99284; A9270

== ENCOUNTER 2023-03-17 16:00 | Emergency (ER) | payer OTHER, MEDICAID, SELFPAY ==
--- NOTE | ~2023-03-17 | US_ITS ---
US breast RT limited DATE: 03/17/2023 20:45 INDICATION: Pain, enlarging mass right breast TECHNIQUE: Real-time and color flow imaging of right breast targeted to area of clinical complaint at 10:00-11:00 COMPARISON: None FINDINGS: No suspicious mass or shadowing or any abnormal fluid collection, cyst or other significant sonographic abnormality is detected. IMPRESSION: Negative BI-RADS Category 1 Reviewed, dictated and finalized at [facility]. Reviewed, dictated and finalized at location A. OR APPLICATIONS DEVELOPER IMPRESSION: Negative BI-RADS Category 1
[2023-03-17 16:10] VITALS: BP 116/67; PULSE 92; RESP 16; TEMP 36.8; O2SAT 99
[2023-03-17 18:25] VITALS: BP 110/72; PULSE 72; RESP 16; O2SAT 100
--- NOTE | 2023-03-17 18:37 | ED.RECABL ---
HPI - Recheck/Abnormal Lab/Rx General Chief Complaint: Recheck/Abnormal Lab/Rx Stated Complaint: right breast pain Time Seen by Provider: 03/17/23 18:31 History of Present Illness HPI narrative: Patient is a 22 year old female here with right breast pain and swelling. Patient notes that she first noted a lump near her areola on her left breast about 2 months ago. She has noticed 2-3 of these over the last 2 months. She notes that about 2 weeks ago she had some cramping pain in her breast while driving which self resolved. She has been seen by her OBGYN for this in the past, they have scheduled her for an outpatient ultrasound and likely mammogram. This has been delayed several times due to her work schedule and the holidays. She does have a family history of breast cancer. She notes that pain began again today Related Data Home Medications Medication Instructions Recorded Confirmed ibuprofen 200 mg tablet 800 mg PO PRN PRN Pain 05/20/22 05/20/22 Allergies Allergy/AdvReac Type Severity Reaction Status Date / Time No Known Allergies Allergy Verified 05/20/22 14:06 [facility] Past Medical History Medical History (Updated 03/17/23 @ 22:25 by Nasra Grissom MD) Asthma last attack as a child (normal spontaneous vaginal delivery) x2 Surgical History Surgical History No pertinent past surgical history Family History Family History (Updated 06/22/22 @ 09:07 by Charity Beard MD) Mother Breast cancer Ovarian cancer Social History Social History Smoking packs per day: 0.5 Smoking cigarettes per day: 10.0 Years smoked: 10 Smoking pack-years: 5.00 Smoking status: Current every day smoker Tobacco type: cigarettes Living arrangements: with family Spiritual care concerns: No Exam Narrative: GENERAL: Well-appearing, well-nourished, and in no acute distress. HEAD: Normocephalic, atraumatic. EYES: PERRLA and EOMI. ENT: Nares clear. Mucous membranes moist. NECK: Supple. CHEST: Clear to auscultation. No respiratory distress. 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 No overlying skin changes appreciated. HEART: Regular rate and rhythm. Normal peripheral pulses. ABDOMEN: Soft, nontender, nondistended. EXTREMITIES: Normal range of motion. No edema. SKIN: Warm, dry, no rash. NEURO: No focal deficits. Alert and oriented x3. PSYCH: Normal mood and affect. Course Course Emergency Course: Chart review performed. Patient here with right breast pain. Notes she is scheduled for US due to lumps, advised to come in by OB should she experience pain. Triage vitals normal. Patient seen and evaluated, exam performed with tech as nuclear plant technical advisor. Low suspicion for breast abscess, will do US here if available, can likely be followed outpatient. Will additionally do viral swab. Got called to bedside, patient would like to leave prior to her results. She remains hemodynamically stable. She is advised that she can follow these results on her portal and with her PCP/OBGYN. She verbalizes understanding and would still like to leave without her results. Advised she can return at any time should her symptoms worsen. Vital Signs Vital signs: Vital Signs Temperature 98.3 F 03/17/23 16:10 Pulse Rate 92 03/17/23 16:10 Respiratory Rate 16 03/17/23 16:10 Blood Pressure 116/67 03/17/23 16:10 Pulse Oximetry 99 03/17/23 16:10 Oxygen Delivery Room Air 03/17/23 16:10 Temperature 97.7 F 03/17/23 21:38 Pulse Rate 76 03/17/23 21:38 Respiratory Rate 15 03/17/23 21:38 Blood Pressure 106/64 03/17/23 21:38 Pulse Oximetry 99 03/17/23 21:38 Oxygen Delivery Room Air 03/17/23 18:25 MDM - Recheck/Abnormal Lab/Rx Lab Data Labs: Lab Results 03/17/23 Range/Units 2
[2023-03-17 21:38] VITALS: BP 106/64; PULSE 76; RESP 15; TEMP 36.5; O2SAT 99
[2023-03-17 22:53] LABS: Influenza A QL RT-PCR Negative (Negative); Influenza B QL RT-PCR Negative (Negative); RSV RNA, RT-PCR Negative (Negative); SARS-CoV-2 RNA PCR Negative (Negative)
== END 2023-03-17 23:14 | disposition home or self-care (01) ==
PROVIDERS: Emergency Provider Student in an Organized Health Care Education/Training Program
DX: N64.4 Mastodynia (principal); J06.9 Acute upper respiratory infection, unspecified; F17.210 Nicotine dependence, cigarettes, uncomplicated; Z20.822 Contact with and (suspected) exposure to COVID-19
CPT/HCPCS: 76642; 87637; 99284

== ENCOUNTER 2023-06-14 20:57 | Emergency (ER) | payer OTHER, MEDICAID, SELFPAY ==
--- NOTE | ~2023-06-14 | US_ITS ---
EXAMINATION: US OB <=14 wk fetus w TV DATE: 06/15/2023 01:10 INDICATION: Low abdominal pain. Uncertain dates. TECHNIQUE: Real-time transabdominal and transvaginal pelvic ultrasound was performed. COMPARISON: Pelvis ultrasound 02/10/2023 FINDINGS: TRANSABDOMINAL ULTRASOUND: The uterus measures 8.5 x 3.9 x 5.4 cm. TRANSVAGINAL ULTRASOUND: There is a cyst in the endometrial complex with mean diameter of 8 mm with i nternal echoes. This finding may be a gestational sac with estimated gestational age of 5 weeks and 4 days. No yolk sac or definite pole is identified. The right ovary measures 1.8 x 0.9 x 2.0 cm. The left ovary measures 3.5 x 4.1 x 2.1 cm. There is normal vascular flow in the ovaries. There is n o free fluid in the pelvis. IMPRESSION: 1. Possible intrauterine gestational sac. Spontaneous and ectopic are not exclude d. Serial beta hCGs are recommended. Reviewed, dictated and finalized at location E. IMPRESSION: 1. Possible intrauterine gestational sac. Spontaneous and ectopic pre gnancy are not excluded. Serial beta hCGs are recommended.
[2023-06-14 21:04] VITALS: BP 108/68; PULSE 84; RESP 18; TEMP 36.5; O2SAT 100
[2023-06-14 22:57] VITALS: BP 102/61; PULSE 77; RESP 23; O2SAT 99
[2023-06-14 23:01] VITALS: BP 98/64; PULSE 73; RESP 21; O2SAT 100
[2023-06-14 23:15] VITALS: PULSE 77
[2023-06-14 23:16] VITALS: BP 110/60; PULSE 76; RESP 23; O2SAT 99
[2023-06-14 23:19] LABS: Basophils Absolute Auto 0.1 K/mm3 (0.0-0.1); Basophils Percent Auto 0.4 % (0.2-1.2); Eosinophils Absolute Auto 0.1 K/mm3 (0-0.3); Eosinophils Percent Auto 0.8 % (0-4.4); Hematocrit 38.7 % (37.0-47.0); Hemoglobin 13.3 g/dL (12.0-15.0); Immature Granulocyte Absolute 0.02 K/mm3 (0.00-0.031); Immature Granulocyte Percent A 0.2 % (0-0.5); Lymphocytes Absolute Auto 4.08 K/mm3 (0.9-3.2); Lymphocytes Percent Auto 33.4 % (18.3-44.2); Mean Corpuscular HGB Conc 34.4 g/dl (32-36); Mean Corpuscular Hemoglobin 29.6 pg (26-34); Mean Platelet Volume 9.6 fl (7.4-10.4); Monocytes Absolute Auto 0.7 K/mm3 (0.1-0.6); Monocytes Percent Auto 5.7 % (2.6-8.5); Neutrophils Absolute Auto 7.3 K/mm3 (1.3-6.7); Neutrophils Percent Auto 59.5 % (45.5-73.1); Platelet Count Result 275 k/mm3 (150-375); Red Cell Distribution Width 12.4 % (11.5-14.5); White Blood Count 12.2 K/mm3 (4.5-10.0)
[2023-06-14 23:22] LABS: Bacteria Urine 3+ /hpf; Non Pathogenic Casts 0-2; RBC Urine 0-2 /hpf (0-2); Squamous Epithelial Cell Urine Moderate /hpf (Few); WBC Urine 21-50 /hpf (0-3)
[2023-06-14 23:32] LABS: Alanine Aminotransferase 13 U/L (6-35); Albumin Level 4.3 g/dL (3.5-5.1); Alkaline Phosphatase 67 U/L (38-126); Anion Gap 6 mmol/L (8-16); Appearance Urine Clear (Clear); Aspartate Amino Transferase 19 U/L (14-36); Bilirubin,Total 0.3 mg/dL (0.2-1.3); Blood Urea Nitrogen 8 mg/dL (7-17); Calcium 9.4 mg/dL (8.4-10.2); Carbon Dioxide 26 mmol/L (22-30); Chloride 104 mmol/L (98-107); Color Urine Yellow (Yellow); Estimated CRCL calculation 108 ml/min; Estimated Glomerular Filt Rate > 60; Glucose 99 mg/dL (65-110); Potassium 3.7 mmol/L (3.4-5.0); Sodium 136 mmol/L (137-145)
[2023-06-14 23:33] LABS: Bilirubin Urine Negative (Negative); Blood Urine Negative (Negative); Glucose Urine UA Negative (Negative); Ketones Urine Negative (Negative); Leukocyte Esterase Ur 2+ LEU/UL (Negative); Nitrate Urine Negative (Negative); Protein Urine Negative (Negative); Specific Grav Ur 1.015 (1.001-1.035); Urobilinogen Urine 0.2 mg/dL (<2.0)
[2023-06-14 23:50] LABS: Add Urine Microscopic? YES
--- NOTE | 2023-06-15 | ECG_ITS ---
Measurements Intervals [place] Rate: 68 P: 52 MS: 136 QRS: 67 QRSD: 103 T: 25 QT: 377 QTc: 402 Interpretive Statements SINUS RHYTHM WITH SINUS ARRHYTHMIA INCOMPLETE RIGHT BUNDLE BRANCH BLOCK BORDERLINE T WAVE ABNORMALITY- ANTERIOR LEADS BORDERLINE ECG COMPARED TO ECG 11/18/2018 21:51:13 SINUS RHYTHM NOW PRESENT SINUS ARRHYTHMIA NOW PRESENT Electronically Signed On 06-15-2023 6:23:40 CDT by John Espinal D.O.
[2023-06-15] MEDS: ACETAMINOPHEN 500 MG TABLET 1000 MG PO (00:13)
[2023-06-15] MEDS: FAMOTIDINE 20 MG TABLET PO (00:14)
[2023-06-15] MEDS: METOCLOPRAMIDE HCL 10 MG TABLET PO (00:14)
[2023-06-15] MEDS: CEPHALEXIN 500 MG CAPSULE PO (00:14)
--- NOTE | 2023-06-15 00:42 | ED.SOB ---
HPI - SOB/Dyspnea General Chief Complaint: Shortness of Breath/Dyspnea Stated Complaint: preg abd pain Time Seen by Provider: 06/14/23 22:53 Source: patient Mode of arrival: ambulatory Limitations: no limitations History of Present Illness HPI Narrative: Patient is a 23-year-old female who presents the ED with multiple complaints. Patient reports having upper back pain over the last 2 days, worse with movement. She notes her 4-year-old daughter sleeps in bed with her and frequently kicks her. She has not tried anything for the pain. She reported having mild shortness of breath today. Denies any recent cough or cold symptoms. Denies chest pain. Patient also reports having fatigue for the last 2 days and lower abdominal cramping today. She took 6 tests earlier today, all of which were positive. Patient is . Denies vaginal bleeding. Unclear of when her LNMP was. Believes it was at the beginning of April. Denies dysuria/hematuria. Related Data Home Medications Medication Instructions Recorded Confirmed ibuprofen 200 mg tablet 800 mg PO PRN PRN Pain 05/20/22 05/20/22 Allergies Allergy/AdvReac Type Severity Reaction Status Date / Time No Known Allergies Allergy Verified 06/14/23 21:08 Review of Systems Review of Systems: CONSTITUTIONAL: Denies fever, chills, or sweats. ENT: Denies rhinorrhea, congestion, sore throat. CARDIOVASCULAR: Denies chest pain. RESPIRATORY: See HPI GASTROINTESTINAL: See HPI GENITOURINARY: Denies vaginal bleeding, dysuria or hematuria. MUSCULOSKELETAL: See HPI NEUROLOGIC: Denies headache, dizziness, numbness, or weakness. All systems reviewed & are unremarkable except as noted in HPI and below PMFSH Past Medical History Medical History Asthma last attack as a child (normal spontaneous vaginal delivery) x2 Surgical History Surgical History No pertinent past surgical history Family History Family History Mother Breast cancer Ovarian cancer Social History Social History Smoking packs per day: 0.5 Smoking cigarettes per day: 10.0 Years smoked: 10 Smoking pack-years: 5.00 Smoking status: Current every day smoker Tobacco type: cigarettes Living arrangements: with family Spiritual care concerns: No Exam Narrative: GENERAL: Well appearing, well-nourished, non-toxic, in no acute distress. HEAD: Normocephalic, atraumatic. RESPIRATORY: Airway patent, respirations nonlabored. Clear to auscultation bilaterally, no rales, rhonchi, wheezing. no focal lung sounds. CARDIOVASCULAR: Regular rate and rhythm without murmurs, rubs, or gallops. ABDOMINAL: Soft, Mild tenderness throughout lower abdomen, no rebound, nondistended. Normoactive BS. MUSCULOSKELETAL: Moves all extremities. No gross deformities. no tenderness throughout thoracic region. No midline spinal tenderness. No palpable bony deformities. Sensation intact. SKIN: Warm, dry, normal color. NEURO: A&O X3. Speech clear. PSYCHIATRIC: Appropriate mood and affect. Normal interaction. Course Vital Signs Vital signs: Vital Signs Temperature 97.7 F 06/14/23 21:04 Pulse Rate 84 06/14/23 21:04 Respiratory Rate 18 06/14/23 21:04 Blood Pressure 108/68 06/14/23 21:04 Pulse Oximetry 100 06/14/23 21:04 Oxygen Delivery Room Air 06/14/23 21:04 Temperature 97.7 F 06/14/23 21:04 Pulse Rate 76 06/14/23 23:16 Respiratory Rate 23 H 06/14/23 23:16 Blood Pressure 110/60 06/14/23 23:16 Pulse Oximetry 99 06/14/23 23:16 Oxygen Delivery Room Air 06/14/23 23:15 MDM - SOB/Dyspnea MDM Narrative Medical decision making narrative: Patient presented to ED with multiple complaints, upper back pain, mild short
== END 2023-06-15 01:30 | disposition left against medical advice (07) ==
PROVIDERS: Emergency Provider Physician Assistant
DX: O9A.211 Injury, poisoning and certain other consequences of external causes complicating pregnancy, first trimester (principal); S29.012A Strain of muscle and tendon of back wall of thorax, initial encounter; O23.41 Unspecified infection of urinary tract in pregnancy, first trimester; N39.0 Urinary tract infection, site not specified; O99.331 Smoking (tobacco) complicating pregnancy, first trimester; F17.210 Nicotine dependence, cigarettes, uncomplicated; O99.411 Diseases of the circulatory system complicating pregnancy, first trimester; I45.10 Unspecified right bundle-branch block; R94.31 Abnormal electrocardiogram [ECG] [EKG]; Z3A.01 Less than 8 weeks gestation of pregnancy; X58.XXXA Exposure to other specified factors, initial encounter
CPT/HCPCS: 36415; 76801; 76817; 80053; 81001; 84702; 85025; 85461; 86850; 86900; 86901; 87086; 93005; 99284; A9270

== ENCOUNTER 2023-11-23 21:39 | Observation (INO) | payer OTHER, SELFPAY ==
[2023-11-23] VITALS (16 sets, daily range): BP systolic 97–106; BP diastolic 54–59; PULSE 74–86; O2SAT 96–100; BMI 29.2
--- NOTE | 2023-11-23 22:10 | OBADM ---
This patient, George Baker, admitted to the OB room OB Post 117 for observation. Patient/family oriented to hospital policies and general routines including ID bracelet, bed and alarms, visiting hours, pain management, procedures, bathroom and other care routines, personal items, smoking policy, room service/diet, and visiting hours. Patient/Family are encouraged to report perceived risks to care and to ask questions if they do not understand what they are told or what they should do.
[2023-11-23 22:27] LABS: Add Urine Microscopic? YES; Appearance Urine Clear (Clear); Bacteria Urine None Seen /hpf; Bilirubin Urine Negative (Negative); Blood Urine Negative (Negative); Color Urine Yellow (Yellow); Glucose Urine UA Negative (Negative); Ketones Urine Negative (Negative); Leukocyte Esterase Ur Trace LEU/UL (Negative); Nitrate Urine Negative (Negative); Non Pathogenic Casts 0-2; Protein Urine Negative (Negative); RBC Urine 0-2 /hpf (0-2); Specific Grav Ur 1.004 (1.001-1.035); Squamous Epithelial Cell Urine None Seen /hpf (Few); Urobilinogen Urine 0.2 mg/dL (<2.0); WBC Urine 0-5 /hpf (0-3); pH Urine 7.5 (5.0-9.0)
--- NOTE | 2023-11-23 22:40 | PC.NURSE ---
Call placed to Dr. Beard. Reported pt c/o SOB, pain in back and pelvis, leg swelling, rib pain and cramping. FHR, CTX, Vitals and UA reported. Reported nurse assessment, no swelling, clear lungs, equal expansion, no effort. Order to discharge pt home undelivered and for pt to follow up with regular OB provider.
--- NOTE | 2023-11-23 23:08 | PC.NURSE ---
Pt discharged home undelivered in stable condition per order from Dr. Beard. Discharge instructions given and explained to pt. All questions and concerns answered. Pt ambulated out of department with all belongings.
--- NOTE | 2023-12-06 11:18 | P.PNOB_ITS ---
OB - Triage/Final Diagnosis Visit Information Date of evaluation: 11/24/23 Reason for evaluation: other (stomach pain) Comments/Additional reasons for admission: I have assessed the risk for this patient, George Baker, and determined that she would benefit from observation care. Evaluation Laboratory results: Laboratory Tests 11/23/23 22:00 Urine Color Yellow Urine Appearance Clear Urine pH 7.5 Ur Specific [place] 1.004 Urine Protein Negative Urine Glucose (UA) Negative Urine Ketones Negative Ur Blood (Man) Negative Urine Nitrate Negative Urine Bilirubin Negative Urine Urobilinogen 0.2 Leukocyte Esterase Rfl Trace H Urine RBC 0-2 Urine WBC 0-5 Ur Squamous Epith Cells None seen Urine Bacteria None seen Urine Casts 0-2
== END 2023-11-23 23:08 | disposition home or self-care (01) ==
PROVIDERS: Admitting Provider Obstetrics & Gynecology Gynecology; Visit Provider Obstetrics & Gynecology Gynecology
DX: O26.893 Other specified pregnancy related conditions, third trimester (principal); R10.9 Unspecified abdominal pain; Z3A.28 28 weeks gestation of pregnancy
CPT/HCPCS: 81001; G0378; G0379

== ENCOUNTER 2023-12-09 08:34 | Observation (INO) | payer OTHER, SELFPAY ==
[2023-12-09 09:00] VITALS: BP 98/53; PULSE 87
[2023-12-09 09:15] VITALS: BP 95/58; PULSE 82
[2023-12-09 09:30] VITALS: BP 92/59; PULSE 82
--- NOTE | 2023-12-09 09:46 | OBADM ---
This patient, George Baker, admitted to the OB room OB Post 116 for observation. Patient/family oriented to hospital policies and general routines including ID bracelet, bed and alarms, visiting hours, pain management, procedures, bathroom and other care routines, personal items, smoking policy, room service/diet, and visiting hours. Patient/Family are encouraged to report perceived risks to care and to ask questions if they do not understand what they are told or what they should do.
[2023-12-09 09:47] VITALS: BMI 29.6
[2023-12-09 10:10] VITALS: BP 92/59; PULSE 66
--- NOTE | 2023-12-10 12:40 | PM.OBTRLD ---
OB - Triage/Final Diagnosis Visit Information Reason for evaluation: threatened labor (and leaking) Comments/Additional reasons for admission: I have assessed the risk for this patient, George Dilip Baker, and determined that she would benefit from observation care.
== END 2023-12-09 10:00 | disposition home or self-care (01) ==
PROVIDERS: Admitting Provider Obstetrics & Gynecology Gynecology; Visit Provider Obstetrics & Gynecology Gynecology
DX: O47.03 False labor before 37 completed weeks of gestation, third trimester (principal); Z3A.30 30 weeks gestation of pregnancy
CPT/HCPCS: 59025; G0378; G0379

== ENCOUNTER 2024-01-06 18:49 | Observation (INO) | payer OTHER, SELFPAY ==
[2024-01-06 19:08] VITALS: BP 109/65; PULSE 101
[2024-01-06 19:15] VITALS: BP 102/64; PULSE 93
[2024-01-06 19:43] LABS: Add Urine Microscopic? YES; Appearance Urine Clear (Clear); Bacteria Urine None Seen /hpf; Bilirubin Urine Negative (Negative); Blood Urine Negative (Negative); Color Urine Yellow (Yellow); Glucose Urine UA Negative (Negative); Ketones Urine Negative (Negative); Leukocyte Esterase Ur 1+ LEU/UL (Negative); Nitrate Urine Negative (Negative); Non Pathogenic Casts 0-2; Protein Urine Negative (Negative); RBC Urine 0-2 /hpf (0-2); Specific Grav Ur 1.006 (1.001-1.035); Squamous Epithelial Cell Urine Occasional /hpf (Few); Urobilinogen Urine 0.2 mg/dL (<2.0); pH Urine 7.5 (5.0-9.0)
--- NOTE | 2024-01-27 07:47 | PM.OBTRLD ---
OB - Triage/Final Diagnosis Visit Information Reason for evaluation: threatened labor Comments/Additional reasons for admission: I have assessed the risk for this patient, George Baker, and determined that she would benefit from observation care. Evaluation Laboratory results: Laboratory Tests 01/06/24 19:35 Urine Color Yellow Urine Appearance Clear Urine pH 7.5 Ur Specific [place] 1.006 Urine Protein Negative Urine Glucose (UA) Negative Urine Ketones Negative Ur Blood (Man) Negative Urine Nitrate Negative Urine Bilirubin Negative Urine Urobilinogen 0.2 Leukocyte Esterase Rfl 1+ H Urine RBC 0-2 Urine WBC 11-20 H Ur Squamous Epith Cells Occasional Urine Bacteria None seen Urine Casts 0-2
== END 2024-01-06 21:28 | disposition home or self-care (01) ==
PROVIDERS: Admitting Provider Obstetrics & Gynecology Gynecology; PCP Nurse Practitioner Family; Visit Provider Obstetrics & Gynecology Gynecology
DX: O47.9 False labor, unspecified (principal); Z3A.00 Weeks of gestation of pregnancy not specified
CPT/HCPCS: 81001; 87086; G0378; G0379

== ENCOUNTER 2024-01-26 11:41 | Outpatient (CLI) | payer OTHER, SELFPAY ==
--- NOTE | 2024-01-26 11:41 | OBADM ---
This patient, George Baker, admitted to the OB room OB Post 113 for observation. Patient/family oriented to hospital policies and general routines including ID bracelet, bed and alarms, visiting hours, pain management, procedures, bathroom and other care routines, personal items, smoking policy, room service/diet, and visiting hours. Patient/Family are encouraged to report perceived risks to care and to ask questions if they do not understand what they are told or what they should do.
[2024-01-26 11:54] VITALS: BP 106/60; PULSE 98
[2024-01-26 12:00] VITALS: BP 105/59; PULSE 97
[2024-01-26 12:15] VITALS: BP 110/62; PULSE 82
[2024-01-26 12:30] VITALS: BP 114/63; PULSE 88
[2024-01-26 13:00] VITALS: BP 107/53; PULSE 79
--- NOTE | 2024-01-26 13:51 | PC.NURSE ---
Charting done by Mason Weller RN was actually done by Joanna Mandujano RN.
[2024-01-26 13:58] LABS: Add Urine Microscopic? YES; Appearance Urine Turbid (Clear); Bacteria Urine 2+ /hpf; Bilirubin Urine Negative (Negative); Blood Urine Negative (Negative); Color Urine Yellow (Yellow); Glucose Urine UA Negative (Negative); Ketones Urine Negative (Negative); Leukocyte Esterase Ur 3+ LEU/UL (Negative); Nitrate Urine Negative (Negative); Non Pathogenic Casts 0-2; Protein Urine Negative (Negative); RBC Urine 0-2 /hpf (0-2); Specific Grav Ur 1.011 (1.001-1.035); Squamous Epithelial Cell Urine Many /hpf (Few); WBC Urine 51-100 /hpf (0-3); pH Urine 7.5 (5.0-9.0)
[2024-01-26 14:45] VITALS: TEMP 36.9
--- NOTE | 2024-01-26 14:55 | PC.NURSE ---
Called Dr. Miranda with pt status. Informed of UA results, reactive tracing with some irregular irritability, SVE /-2 and ROM plus negative. Pt complaining of nausea and diarrhea, cramping and leaking fluid. Pt requesting food at this time. July D/C home.
== END 2024-01-26 15:05 | disposition home or self-care (01) ==
LOC: ANHOBOP 11:47 → ANHOBPP 15:01
PROVIDERS: PCP Nurse Practitioner Family; Referring Provider Obstetrics & Gynecology; Visit Provider Obstetrics & Gynecology
DX: O42.90 Premature rupture of membranes, unspecified as to length of time between rupture and onset of labor, unspecified weeks of gestation (principal); Z3A.00 Weeks of gestation of pregnancy not specified
CPT/HCPCS: 81001; 87086; 99199

== ENCOUNTER 2024-02-06 22:00 | Observation (INO) | payer OTHER, SELFPAY ==
[2024-02-06 22:12] VITALS: BP 123/71; PULSE 83
[2024-02-06 22:15] VITALS: BP 121/66; PULSE 84
[2024-02-06 22:30] VITALS: BP 116/71; PULSE 89
[2024-02-06 22:45] VITALS: BP 116/66; PULSE 75
[2024-02-06 23:00] VITALS: BP 112/68; PULSE 87
[2024-02-06 23:15] VITALS: BP 113/73; PULSE 95
[2024-02-06 23:22] VITALS: BMI 30.6
--- NOTE | 2024-02-06 23:23 | OBADM ---
This patient, George Baker, admitted to the OB room Labor/Delivery/Recovery 104 for observation. Patient/family oriented to hospital policies and general routines including ID bracelet, bed and alarms, visiting hours, pain management, procedures, bathroom and other care routines, personal items, smoking policy, room service/diet, and visiting hours. Patient/Family are encouraged to report perceived risks to care and to ask questions if they do not understand what they are told or what they should do.
--- NOTE | 2024-02-10 20:30 | PM.OBTRLD ---
OB - Triage/Final Diagnosis Visit Information Comments/Additional reasons for admission: I have assessed the risk for this patient, George Baker, and determined that she would benefit from observation care. Final Diagnosis (1) False labor: Code(s): O47.9 - False labor, unspecified Status: Acute
== END 2024-02-06 23:35 | disposition home or self-care (01) ==
PROVIDERS: Admitting Provider Obstetrics & Gynecology; PCP Nurse Practitioner Family; Visit Provider Obstetrics & Gynecology
DX: O47.1 False labor at or after 37 completed weeks of gestation (principal); Z3A.38 38 weeks gestation of pregnancy
CPT/HCPCS: G0379

== ENCOUNTER 2024-12-17 13:57 | Emergency (ER) | payer MEDICAID, SELFPAY ==
--- NOTE | ~2024-12-17 | XR_ITS ---
EXAMINATION: XR foot LT min 3V, 12/17/2024 14:15 CDT HISTORY: injury COMPARISON: No comparisons available. Findings: Nondisplaced fracture proximal fifth metatarsal No significant degenerative changes. Soft tissues unremarkable. Impression: Metatarsal fracture Reviewed, dictated and finalized at location . Impression: Metatarsal fracture
[2024-12-17 13:58] VITALS: BP 130/78; PULSE 87; RESP 16; TEMP 36.4; O2SAT 99
[2024-12-17] MEDS: ACETAMINOPHEN 500 MG TABLET 1000 MG PO (14:26)
[2024-12-17] MEDS: IBUPROFEN 600 MG TABLET PO (14:27)
--- NOTE | 2024-12-17 14:29 | ED_ITS ---
HPI - Extremity Injury (Lower) General Chief Complaint: Extremity Injury, Lower Stated Complaint: left foot injury Time Seen by Provider: 12/17/24 14:02 Source: patient Mode of arrival: ambulatory Limitations: no limitations History of Present Illness HPI Narrative: Patient is a 24-year-old female who presents the ED with report of left foot pain. Patient reports she was drinking last night and was intoxicated. Woke up this morning with pain, swelling, bruising to her left dorsal foot. Unable to bear weight. Is unsure how she injured herself. Denies any other areas of pain or injury. Denies numbness. Has not taken anything for pain. Related Data Home Medications ?Medication ?Instructions ?Recorded ?Confirmed ?Last Taken ?Type Tylenol 650 mg PO Q4-6M PRN Pain, Mi ld 11/23/23 12/09/23 12/02/23 08:00 History famotidine 20 mg tablet (Acid 20 mg PO BID 11/23/2312/09/23 08:00 History Sales Consultant Residential Manager (famotidine)) ondansetron HCl 8 mg tablet 8 mg PO Q8-10H PRN Nausea And 11/23/23 12/09/23 12/09/23 08:00 History Vomiting Allergies Allergy/AdvReac Type Severity Reaction Status Date / Time No Known Allergies Allergy Verified 12/17/24 14:06 Review of Systems Review of Systems: All systems reviewed & are unremarkable except as noted in HPI. All systems reviewed & are unremarkable except as noted in HPI and below PMFSH Past Medical History Medical History Asthma last attack as a child (normal spontaneous vaginal delivery) x2 Surgical History Surgical History No pertinent past surgical history Family History Family History Mother Breast cancer Ovarian cancer Social History Social History Smoking packs per day: 0.5 Smoking cigarettes per day: 10.0 Years smoked: 10 Smoking pack-years: 5.00 Smoking status: Current every day smoker Tobacco type: cigarettes Living arrangements: with family Spiritual care concerns: No Exam Narrative: GENERAL: Well appearing, well-nourished, non-toxic, in no acute distress. HEAD: Normocephalic, atraumatic. RESPIRATORY: Airway patent, respirations nonlabored. CARDIOVASCULAR: Regular rate and rhythm. Pedal pulses are intact and easily palpable. MUSCULOSKELETAL: Moves all extremities. No gross deformities. Moderate swelling, bruising, tenderness to mid dorsal lateral left foot. SKIN: Warm, dry, normal color. NEURO: A&O X3. Speech clear. No ataxic movements. PSYCHIATRIC: Appropriate mood and affect. Normal interaction. Course Vital Signs Vital signs: Vital Signs Temperature 97.5 F L 12/17/24 13:58 Pulse Rate 87 12/17/24 13:58 Respiratory Rate 16 12/17/24 13:58 Blood Pressure 130/78 12/17/24 13:58 Pulse Oximetry 99 12/17/24 13:58 Temperature 97.5 F L 12/17/24 13:58 Pulse Rate 87 12/17/24 13:58 Respiratory Rate 16 12/17/24 13:58 Blood Pressure 130/78 12/17/24 13:58 Pulse Oximetry 99 12/17/24 13:58 MDM - Extremity Injury (Lower) MDM Narrative Medical decision making narrative: Patient?s injury is consistent with musculoskeletal etiology. No signs of neurologic or vascular compromise on physical examination. Compartments are soft without signs of compartment syndrome. XR L foot showing 5th MT proximal fx. Pain is consistent with exam and injury. Patient is felt to be stable for discha rge home and further outpatient management and treatment. Placed in short leg posterior splint in the ED. Given crutches. Advised strict nonweightbearing. Advised will need close follow-up with orthopedics for further evaluation. Will prescribe pain medication for home. Given strict return precautions. Patient in agreement with plan. Discharged in stable condition. Medical Records Attestation: I reviewed the patient's medical records. Imaging Data Attestation: I personally reviewed and interpreted this imaging study as follows: Radiologist's impression: ITS Impressions Foot X-Ray 12/17/24 14:35 Impression: Metatarsal fracture Discharge Plan Discharge Clinical Impression: Fracture of base of fifth metatarsal bone of left foot Qualifiers: Encounter type: initial encounter Fracture type: closed Qualified Code(s): S92.352A - Displaced fracture of fifth metatarsal bone, left foot, initial encounter for closed fracture Patient Disposition: Home Condition: Stable Instructions: Antibiotic Form, Foot Fracture in Adults (ED), Splint Care (ED), P.R.I.C.E. Treatment (ED) Additional Instructions: You will need to follow-up with orthopedics for further evaluation of fracture. Call office tomorrow to make appointment. Wear splint until seen by orthopedics. Avoid any weight-bearing on your left foot. Recommend frequent elevation of leg, frequent icing. Tylenol/ibuprofen as needed for pain. Abbot as needed for more severe pain. Return to the ED for worsening or severe pain or swelling, recurrent injury, numbness, or any other symptoms of concern. Patient Language: Azeri Prescriptions: New hydrocodone-acetaminophen 5-325 mg tablet 1 tablet PO Q6H PRN (Reason: pain) Qty: 15 0RF No Action Tylenol 650 mg PO Q4-6H PRN (Reason: Pain, Mild) 1 Days Qty: 0 0RF ondansetron HCl 8 mg Tablet 8 mg PO Q8-10H PRN (Reason: Nausea And Vomiting) famotidine [Acid Sales Consultant Residential Manager (famotidine)] 20 mg Tablet 20 mg PO BID Tylenol 650 mg PO Q4-6M PRN (Reason: Pain, Mild) Follow-up/Referrals: Sher Us MD [Physician, Orthopedics] Referral Note: ORTHOPEDICS Dea,LIO Benitez [Primary Care Provider] Time of Disposition: 14:40
== END 2024-12-17 15:09 | disposition home or self-care (01) ==
PROVIDERS: Emergency Provider Physician Assistant; PCP Nurse Practitioner Family
DX: S92.352A Displaced fracture of fifth metatarsal bone, left foot, initial encounter for closed fracture (principal); F17.210 Nicotine dependence, cigarettes, uncomplicated; X58.XXXA Exposure to other specified factors, initial encounter
CPT/HCPCS: 29515; 73630; 99284; A9270